=== PATIENT | male | born 1990 | race Hispanic/Latino ===

== ENCOUNTER 2020-06-09 22:36 | Emergency (ER) | payer OTHER ==
[2020-06-09 22:53] VITALS: BP 120/79
[2020-06-09 23:30] LABS: Basophils # (Auto) 0.1 K/mm3 (0.0-0.1); Eosinophils # (Auto) 0.1 K/mm3 (0.0-0.4); Eosinophils % (Auto) 1.3 % (0.0-4.3); Hematocrit 42.1 % (35.5-45.6); Hemoglobin 14.3 gm/dl (11.8-15.2); Lymphocytes # (Auto) 2.5 K/mm3 (1.2-5.4); Lymphocytes % (Auto) 24.7 % (13.4-35.0); Mean Corpuscular HGB Conc 34 % (32-34); Mean Corpuscular Volume 88 fl (84-94); Monocytes % (Auto) 9.8 % (0.0-7.3); Platelet Count 285 K/mm3 (140-440)
[2020-06-09 23:47] LABS: Bilirubin,Urine NEG (Negative); Blood,Urine NEG (Negative); Color,Urine Yellow (Yellow); Mucus,Urine 2+ /HPF
[2020-06-09 23:49] LABS: BUN/Creatinine Ratio 12; Blood Urea Nitrogen 11 mg/dL (9-20); Calcium 9.2 mg/dL (8.4-10.2); Hemolysis Index 5
--- NOTE | 2020-06-10 01:33 | Emergency Department Report ---
ED Male HPI - General Chief complaint: Urogenital-Male Stated complaint: TESTICULAR PAIN/DIZZINESS Time Seen by Provider: 06/10/20 01:14 Source: patient Mode of arrival: Ambulatory Limitations: No Limitations - History of Present Illness Initial comments: Patient is a 29-year-old male who presents with left testicular pain times 1-1/2 weeks patient denies dysuria no hematuria no penile discharge no fever chills no nausea vomiting. Patient is having normal bowel movements normal voiding. Patient does have a history of epididymitis 1 year ago. There is no testicular swelling no history of hernia. Last sexual contact MD Complaint: testicle pain - Related Data Previous Rx's Medication Instructions Recorded Last Taken Type Ibuprofen [Motrin 800 MG tab] 800 mg PO Q8HR PRN #10 tablet 06/12/19 Unknown Rx Doxycycline Monohydrate 100 mg PO BID 10 Days #20 capsule 06/10/20 Unknown Rx [Doxycycline Monohydrate CAP] Ibuprofen [Motrin 800 MG tab] 800 mg PO Q8HR PRN #30 tablet 06/10/20 Unknown Rx Allergies Allergy/AdvReac Type Severity Reaction Status Date / Time No Known Allergies Allergy Unverified 06/12/19 19:07 ED Review of Systems ROS: Stated complaint: TESTICULAR PAIN/DIZZINESS Other details as noted in HPI Constitutional: denies: chills, fever Eyes: denies: eye pain, eye discharge, vision change ENT: denies: ear pain, throat pain Respiratory: denies: cough, shortness of breath, wheezing Cardiovascular: denies: chest pain, palpitations Endocrine: no symptoms reported Gastrointestinal: denies: abdominal pain, nausea, diarrhea Genitourinary: denies: urgency, dysuria Musculoskeletal: denies: back pain, joint swelling, arthralgia Skin: denies: rash, lesions Neurological: denies: headache, weakness, paresthesias Psychiatric: denies: anxiety, depression Hematological/Lymphatic: denies: easy bleeding, easy bruising ED Past Medical Hx - Past Medical History Previous Medical History?: No - Surgical History Past Surgical History?: Yes Additional Surgical History: Varicele - Social History Smoking Status: Current Every Day Smoker Substance Use Type: None - Medications Home Medications: Home Medications Medication Instructions Recorded Confirmed Last Taken Type Ibuprofen [Motrin 800 MG tab] 800 mg PO Q8HR PRN #10 tablet 06/12/19 Unknown Rx Doxycycline Monohydrate 100 mg PO BID 10 Days #20 capsule 06/10/20 Unknown Rx [Doxycycline Monohydrate CAP] Ibuprofen [Motrin 800 MG tab] 800 mg PO Q8HR PRN #30 tablet 06/10/20 Unknown Rx ED Physical Exam - General Limitations: No Limitations General appearance: alert, in no apparent distress - Head Head exam: Present: atraumatic, normocephalic - Eye Eye exam: Present: normal appearance - ENT ENT exam: Present: mucous membranes moist - Neck Neck exam: Present: normal inspection - Respiratory Respiratory exam: Present: normal lung sounds bilaterally. Absent: respiratory distress - Cardiovascular Cardiovascular Exam: Present: regular rate, normal rhythm. Absent: systolic murmur, diastolic murmur, rubs, gallop - GI/Abdominal GI/Abdominal exam: Present: soft, normal bowel sounds. Absent: distended, tenderness, guarding, rebound, rigid, bruit, hernia - Rectal Rectal exam: Present: deferred - exam: Present: testicular tenderness (left epididymal tenderness fullness. ), circumcision. Absent: urethral discharge, scrotal swelling, vertical testicular lie External exam: Absent: erythema, swelling, lesions - Extremities Exam Extremities exam: Present: normal inspection ( Wall), tenderness, normal capillary refill. Absent: full ROM - Back Exam Back exam: Present: normal inspection, full ROM. Absent: tenderness, CVA tenderness (R), CVA tenderness (L) - Neurological Exam Neurological exam: Present: alert, oriented X3, normal gait - Psychiatric Psychiatric exam: Present: normal affect, normal mood - Skin Skin exam: Present: warm, dry, intact, normal color. Absent: rash ED Course Vital Signs 06/09/20 22:46 Temperature 97.9 F Pulse Rate 88 Respiratory 16 Rate Blood Pressure 120/79 O2 Sat by Pulse 99 Oximetry ED Medical Decision Making - Lab Data Result diagrams: 06/09/20 23:08 06/09/20 23:08 Labs 06/09/20 06/09/20 06/09/20 23:08 23:08 Unknown WBC 10.2 RBC 4.80 Hgb 14.3 Hct 42.1 MCV 88 MCH 30 MCHC 34 RDW 13.0 L Plt Count 285 Lymph % (Auto) 24.7 [place] % (Auto) 9.8 H Eos % (Auto) 1.3 Baso % (Auto) 1.0 Lymph # 2.5 [place] # 1.0 H Eos # 0.1 Baso # 0.1 Seg Neutrophils % 63.2 Seg Neutrophils # 6.4 Sodium 141 Potassium 4.2 Chloride 101.9 Carbon Dioxide 25 Anion Gap 18 BUN 11 Creatinine 0.9 Estimated GFR > 60 BUN/Creatinine Ratio 12 Glucose 89 Calcium 9.2 Urine Color Yellow Urine Turbidity Clear Urine pH 7.0 Ur Specific [place] 1.029 Urine Protein 30 mg/dl Urine Glucose (UA) Neg Urine Ketones Neg Urine Blood Neg Urine Nitrite Neg Urine Bilirubin Neg Urine Urobilinogen 2.0 Ur Leukocyte Esterase Neg Urine WBC (Auto) 1.0 Urine RBC (Auto) 2.0 Urine Mucus 2+ - Medical Decision Making this is not testicular torsion, ua normal, no fever, no chills, no n/v, no hernia, noted epididymitis on exam, no orchitis, no mass, hydrocele, this is a recurring problem for this pt, similar symptoms 1 yr ago, however has not fo llowed up with urology, plan: doxycyline, follow up with urology , nsaids prn pain, return to ed if symptoms worsen. Critical care attestation.: If time is entered above; I have spent that time in minutes in the direct care of this critically ill patient, excluding procedure time. ED Disposition Clinical Impression: Epididymitis Disposition: TO HOME OR SELFCARE Is pt being admited?: No Does the pt Need Aspirin: No Condition: Stable Instructions: Epididymitis (ED) Prescriptions: Doxycycline Monohydrate [Doxycycline Monohydrate CAP] 100 mg PO BID 10 Days #20 capsule Ibuprofen [Motrin 800 MG tab] 800 mg PO Q8HR PRN #30 tablet PRN Reason: pain Referrals: JOSELYN LADD MD [Staff Physician] - 3-5 Days Forms: Work/School Release Form(ED) Time of Disposition: 01:41
== END 2020-06-10 01:50 | disposition home or self-care (01) ==
LOC: ED 22:36
DX: N45.1 Epididymitis (principal); F17.200 Nicotine dependence, unspecified, uncomplicated; Z98.890 Other specified postprocedural states; Z79.1 Long term (current) use of non-steroidal anti-inflammatories (NSAID); Z79.899 Other long term (current) drug therapy
CPT/HCPCS: 36415; 80048; 81001; 85025